=== PATIENT | female | born 1930 | race African-American/Black ===

== ENCOUNTER 2017-12-11 10:19 | Inpatient (IN) | payer MEDICARE, MEDICAID ==
[2017-12-11] MEDS ORDERED: CEFTRIAXONE 1 GM/D5W RTU 50 ML IV ONE (10:51)
[2017-12-11] MEDS ORDERED: KETOROLAC TROMETHAMINE INJ/PF 30 MG/1 ML SDV IV ONE (10:54)
[2017-12-11] MEDS ORDERED: CEFTRIAXONE SODIUM 1,000 MG in NORMAL SALINE 100 ML IV ONE (11:30)
--- NOTE | 2017-12-11 11:45 | ER Document Report ---
ED General - General Chief Complaint: Fever Stated Complaint: FEVER Time Seen by Provider: 12/11/17 10:24 Mode of Arrival: Medic Information source: Emergency Med Personnel Cannot obtain history due to: Dementia, Altered mental status Notes: 87-year-old female presents from care facility where she was noted to have a fever of 105.1, care facility provided tylenol 650 rectal, ems noted temp 102, gave 325 tylenol rectal. pt noted to be demented at baseline agitated, but today has been calmer. TRAVEL OUTSIDE OF THE [place] IN LAST 30 DAYS: No - HPI Onset: Just prior to arrival Onset/Duration: Sudden Quality of pain: No pain Severity: Severe Pain Level: Denies Associated symptoms: Fever, Other Exacerbated by: Denies Relieved by: Denies Similar symptoms previously: No Recently seen / treated by doctor: No - Related Data Allergies/Adverse Reactions: No Known Allergies Allergy (Verified 10/02/16 00:13) Past Medical History - Social History Smoking Status: Never Smoker Cigarette use (# per day): No Chew tobacco use (# tins/day): No Smoking Education Provided: No Family History: Reviewed & Not Pertinent - Past Medical History Cardiac Medical History: Reports: Hx Hypertension Musculoskeltal Medical History: Reports Hx Arthritis Psychiatric Medical History: Reports: Hx Dementia - Immunizations Hx Diphtheria, Pertussis, Tetanus Vaccination: Yes Review of Systems - Review of Systems Notes: PHYSICAL EXAMINATION: GENERAL: Extremely ill-appearing female HEAD: Atraumatic, normocephalic. EYES: Pupils equal round and reactive to light, extraocular movements intact, conjunctiva are normal. ENT: Dry mucous membranes white matter in her mouth NECK: Normal range of motion, supple without lymphadenopathy LUNGS: Coarse breath sounds tachypneic HEART: Tachycardic ABDOMEN: Soft, nontender, nondistended abdomen. No guarding, no rebound. No masses appreciated. Female : deferred Musculoskeletal: Normal range of motion, no pitting or edema. No cyanosis. NEUROLOGICAL: Not oriented to person or place no speech patient is moving upper extremities SKIN: Extremities are cold but patient is noted to be febrile 105 -: Yes ROS unobtainable due to patient's medical condition Physical Exam - Vital signs Vitals: Resp Pulse Ox 27 H 94 12/11/17 10:28 12/11/17 10:28 Course - Re-evaluation Re-evalutation: Strongly ill-appearing female 12/11/17 11:43 I had a long discussion with tyra, she notes patient is a dnr, i explained extensively that rob is extremely ill and tyron probably succumb to the current infection, she notes she understands, I explained i will try to treat her at the best of my abilities but expect comfort care for her, she states she understands, does not want surgery or any extensive measures and that she is comfortable with comfort care. lab is drawing blood work, pt given tylenol 1000mg temp was between 105-102, i gave toradol iv to help with fever and agitation. 12/11/17 11:[address] Stephens he will admit ot medical floor for comfort, agrees about extremly poor prognosis 12/11/17 19:59 12/11/17 19:59 Patient's lab work look extremely poor, elevated lactic acid severe white count noted patient herself looks in extremis, I have very low prognosis - Vital Signs Vital signs: Temp Pulse Resp BP Pulse Ox 99.8 F 27 H 144/100 H 84 L 12/11/17 15:00 12/11/17 15:00 12/11/17 15:11 12/11/17 15:00 - Laboratory Result Diagrams: 12/11/17 11:44 12/11/17 11:44 Laboratory results interpreted by me: 12/11/17 12/11/17 12/11/17 11:44 11:44 11:44 WBC 26.6 H RDW 14.8 H Seg Neuts % (Manual) 96 H Band Neutrophils % 1 L Lymphocytes % (Manual) 1 L Monocytes % (Manual) 2 L Abs Neuts (Manual) 25.8 H Abs Lymphs (Manual) 0.3 L PT 16.5 H VBG pH Sodium 157.2 H Potassium 3.4 L Chloride 115 H Anion Gap 20 H BUN 50 H Creatinine 2.05 H Est GFR ( Amer) 28 L Est GFR (Non-Af Amer) 23 L Glucose 227 H Lactic Acid Total Bilirubin 2.2 H Direct Bilirubin 0.7 H Urine Protein Urine Glucose (UA) Urine Blood Urine Urobilinogen 12/11/17 12/11/17 12/11/17 11:44 11:44 12:25 WBC RDW Seg Neuts % (Manual) Band Neutrophils % Lymphocytes % (Manual) Monocytes % (Manual) Abs Neuts (Manual) Abs Lymphs (Manual) PT VBG pH 7.45 H Sodium Potassium Chloride Anion Gap BUN Creatinine Est GFR ( Amer) Est GFR (Non-Af Amer) Glucose Lactic Acid 3.8 H Total Bilirubin Direct Bilirubin Urine Protein >=500 H Urine Glucose (UA) 50 H Urine Blood MODERATE H Urine Urobilinogen 4.0 H - Diagnostic Test Radiology reviewed: Image reviewed, Reports reviewed Critical Care Note - Critical Care Note Total time excluding time spent on procedures (mins): 55 Comments: 55 minutes of critical care time spent in direct contact evaluating and reevaluating the patient, treating symptoms, reviewing labs and studies and speaking with family and consultants excluding any procedures Discharge - Discharge Clinical Impression: Encephalopathy, Hypoxemia Dementia Qualifiers: Dementia type: unspecified type Dementia behavioral disturbance: with behavioral disturbance Qualified Code(s): F03.91 - Unspecified dementia with behavioral disturbance Sepsis Qualifiers: Sepsis type: sepsis due to unspecified organism Qualified Code(s): A41.9 - Sepsis, unspecified organism Fever Qualifiers: Fever type: unspecified Qualified Code(s): R50.9 - Fever, unspecified Condition: Critical Disposition: ADMITTED INPATIENT Admitting Provider: [facility] Unit Admitted: Medical Floor
[2017-12-11] MEDS ORDERED: DIPHENHYDRAMINE HCL 50 MG/ML VIAL IV ONE (11:51)
[2017-12-11 11:58] LABS: VENOUS BLOOD BASE EXCESS 0.9 mmol/L; VENOUS BLOOD HCO3 24.4 mmol/L (20-32); VENOUS BLOOD PCO2 35.7 mmHg (35-63); VENOUS BLOOD PH 7.45 (7.30-7.42)
[2017-12-11 12:01] LABS: HEMATOCRIT 43.6 % (36.0-47.0); HEMOGLOBIN 14.3 g/dL (12.0-15.5); MEAN CORPUSCULAR HEMOGLOBIN 30.5 pg (27.0-33.4); MEAN CORPUSCULAR HGB CONC 32.8 g/dL (32.0-36.0); MEAN CORPUSCULAR VOLUME 93 fl (80-97); PLATELET COUNT 216 10^3/uL (150-450); RED CELL DISTRIBUTION WIDTH 14.8 % (11.5-14.0); WHITE BLOOD COUNT 26.6 10^3/uL (4.0-10.5)
[2017-12-11 12:06] LABS: INTERNATIONAL RATION (INR) 1.25; PROTHROMBIN TIME 16.5 SEC (11.4-15.4)
[2017-12-11 12:15] LABS: ALANINE AMINOTRANSFERASE 26 U/L (9-52); ALBUMIN 3.9 g/dL (3.5-5.0); ALKALINE PHOSPHATASE 93 U/L (38-126); ASPARTATE AMINO TRANSFERASE 35 U/L (14-36); BILIRUBIN,DIRECT 0.7 mg/dL (0.0-0.4); BILIRUBIN,TOTAL 2.2 mg/dL (0.2-1.3); BLOOD UREA NITROGEN 50 mg/dL (7-20); CALCIUM 9.9 mg/dL (8.4-10.2); CARBON DIOXIDE 22 mmol/L (22-30); CHLORIDE 115 mmol/L (98-107); GLUCOSE 227 mg/dL (75-110); POTASSIUM 3.4 mmol/L (3.6-5.0); TOTAL PROTEIN 6.8 g/dL (6.3-8.2)
[2017-12-11 12:23] LABS: SODIUM 157.2 mmol/L (137-145)
[2017-12-11 12:25] LABS: ABSOLUTE LYMPHOCYTES# (MANUAL) 0.3 10^3/uL (0.5-4.7); ABSOLUTE MONOCYTES # (MANUAL) 0.5 10^3/uL (0.1-1.4); ABSOLUTE NEUTROPHILS# (MANUAL) 25.8 10^3/uL (1.7-8.2); ANISOCYTOSIS SLIGHT; BAND NEUTROPHILS % (MANUAL) 1 % (3-5); BASOPHILS % (MANUAL) 0 % (0-2); EOSINOPHILS % (MANUAL) 0 % (0-6); LYMPHOCYTES % (MANUAL) 1 % (13-45); MONOCYTES % (MANUAL) 2 % (3-13); OVALOCYTES SLIGHT; POIKILOCYTOSIS SLIGHT; SEGMENTED NEUTROPHILS % (MAN) 96 % (42-78); TOTAL CELLS COUNTED 100; TOXIC GRANULATION 1+; TOXIC VACUOLATION PRESENT
[2017-12-11 12:26] LABS: PLATELET COMMENT ADEQUATE
[2017-12-11 12:27] LABS: ANION GAP 20 (5-19)
--- NOTE | 2017-12-11 12:42 | RADIOLOGY REPORT (SQ) ---
EXAM DESCRIPTION: CHEST SINGLE VIEW COMPLETED DATE/TIME: 12/11/2017 12:33 pm REASON FOR STUDY: fever 105 COMPARISON: Chest films 06/12/2011, 11/20/2012, 04/23/2013, 10/01/2016 EXAM PARAMETERS: NUMBER OF VIEWS: One view. TECHNIQUE: Single frontal radiographic view of the chest acquired. RADIATION DOSE: NA LIMITATIONS: None. FINDINGS: LUNGS AND PLEURA: No opacities, masses or pneumothorax. No pleural effusion. MEDIASTINUM AND HILAR STRUCTURES: No masses. Contour normal. HEART AND VASCULAR STRUCTURES: Heart normal in size. Normal vasculature. BONES: No acute findings. HARDWARE: None in the chest. OTHER: No other significant finding. IMPRESSION: NO ACUTE RADIOGRAPHIC FINDING IN THE CHEST. TECHNICAL DOCUMENTATION: JOB ID: [id number] [employer]- All Rights Reserved Reading location - IP/workstation name: [email or web address]
[2017-12-11 12:45] LABS: AMORPHOUS SEDIMENT,URINE TRACE /HPF; APPEARANCE,URINE CLOUDY; BILIRUBIN,URINE NEGATIVE (NEGATIVE); COLOR,URINE AMBER; GLUCOSE, URINE 50 mg/dL (NEGATIVE); KETONES,URINE NEGATIVE (NEGATIVE); LEUKOCYTE ESTERASE,URINE NEGATIVE (NEGATIVE); NITRITE,URINE NEGATIVE (NEGATIVE); PROTEIN,URINE >=500 mg/dL (NEGATIVE); URINE SPECIFIC GRAVITY 1.027
--- NOTE | 2017-12-11 13:10 | EKG REPORT ---
SEVERITY:- ABNORMAL ECG - SINUS TACHYCARDIA PROBABLE LEFT VENTRICULAR HYPERTROPHY BORDERLINE ST ELEVATION, ANTEROLATERAL LEADS : Confirmed by: José Miguel Garcia MD 11-Dec-2017 13:10:09
[2017-12-11] MEDS ORDERED: NORMAL SALINE 1000 ML 1,000 ML IV ONE ×2 (13:46→13:47)
[2017-12-11] MEDS: HYDROMORPHONE HCL INJ/PF 2 MG/ML AMPULE IV PRN (22:54)
[2017-12-11] MEDS: AMPICILLIN SODIUM/SULBACTAM NA 3 GM in NORMAL SALINE 100 ML IV SCH (22:55)
[2017-12-12] MEDS: AMPICILLIN SODIUM/SULBACTAM NA 3 GM in NORMAL SALINE 100 ML IV SCH ×4 (05:22→20:56)
--- NOTE | 2017-12-12 06:08 | PDOC H&P ---
History of Present Illness Admission Date/PCP: 12/11/17 13:38 ROGER CASH MD History of Present Illness: MAYA LIZARRAGA is a 87 year old femle With dementia, resident of the senior care at [place], she was transferred from the senior care to the emergency room for evaluation of fever with temperature 105. She was evaluated in the emergency room, she was found to be septic, there is lactic acidosis, severe leukocytosis, acute kidney injury. No history could be obtained from patient, she has excruciating very tender left periauricular area, looks suspicious for an abscess Past Medical History Cardiac Medical History: Reports: Hypertension Musculoskeltal Medical History: Reports: Arthritis Psychiatric Medical History: Reports: Dementia Denies: Depression Social History Smoking Status: Never Smoker Frequency of Alcohol Use: None Hx Recreational Drug Use: No Drugs: None Hx Prescription Drug Abuse: No Family History Family History: Reviewed & Not Pertinent Parental Family History Reviewed: Yes Children Family History Reviewed: Yes Sibling(s) Family History Reviewed.: Yes Medication/Allergy Home Medications: Acetaminophen [Tylenol 325 mg Tablet] 650 mg PO Q8 12/11/17 Alprazolam [Xanax 0.5 mg Tablet] 0.5 mg PO BID 12/11/17 Aspirin [Aspirin 81 mg Chewable Tablet] 81 mg PO DAILY 12/11/17 Levetiracetam [Keppra 500 mg Tablet] 500 mg PO Q12 12/11/17 Lisinopril [Prinivil 5 mg Tablet] 5 mg PO DAILY 12/11/17 Mirtazapine [Remeron 15 mg Tablet] 7.5 mg PO QHS 12/11/17 Multivitamin/Iron/Folic Acid [Centrum Adults Tablet] 1 each PO DAILY 12/11/17 Sertraline HCl [Zoloft 50 mg Tablet] 50 mg PO DAILY 12/11/17 Allergies/Adverse Reactions: No Known Allergies Allergy (Verified 10/02/16 00:13) Review of Systems ROS unobtainable: Other - Dementia Physical Exam Vital Signs: Temp Pulse Resp BP Pulse Ox 99.8 F 27 H 144/100 H 84 L 12/11/17 15:00 12/11/17 15:00 12/11/17 15:11 12/11/17 15:00 Intake & Output 12/10/17 12/11/17 12/12/17 06:59 06:59 06:59 Intake Total 0 Output Total 200 Balance -200 Weight 45.4 kg General appearance: PRESENT: thin Eye exam: PRESENT: PERRLA Ear exam: PRESENT: other - There is swelling, redness and tenderness of the left periauricular area Mouth exam: PRESENT: other - Purulent secretion in the oral cavity Neck exam: PRESENT: tenderness Respiratory exam: PRESENT: clear to auscultation sharron Cardiovascular exam: PRESENT: +S1, +S2 Neurological exam: PRESENT: alert Results Laboratory Results: 12/11/17 16:07 Lactic Acid 1.9 Impressions: Chest X-Ray 12/11/17 10:51 IMPRESSION: NO ACUTE RADIOGRAPHIC FINDING IN THE CHEST. Assessment & Plan - Diagnosis (1) Sepsis Qualifiers: Sepsis type: sepsis due to unspecified organism Qualified Code(s): A41.9 - Sepsis, unspecified organism Is this a current diagnosis for this admission?: Yes Plan: She has sepsis, potential source abscess/cellulitis of the left. Periauricular area. Family wants patient to be DNR status, no heroic measures. I had a long discussion with family about prognosis and plan of care (2) Dementia Qualifiers: Dementia type: Alzheimer's disease Is this a current diagnosis for this admission?: Yes
[2017-12-12] MEDS: NORMAL SALINE 1000 ML 1,000 ML IV PRN ×2 (06:27→09:50)
[2017-12-12 07:06] LABS: HEMATOCRIT 37.4 % (36.0-47.0); HEMOGLOBIN 12.3 g/dL (12.0-15.5); MEAN CORPUSCULAR HEMOGLOBIN 30.4 pg (27.0-33.4); MEAN CORPUSCULAR HGB CONC 32.8 g/dL (32.0-36.0); MEAN CORPUSCULAR VOLUME 93 fl (80-97); PLATELET COUNT 178 10^3/uL (150-450); RED BLOOD COUNT 4.03 10^6/uL (3.72-5.28); WHITE BLOOD COUNT 22.1 10^3/uL (4.0-10.5)
[2017-12-12 07:16] LABS: ALANINE AMINOTRANSFERASE 32 U/L (9-52); ALBUMIN 3.1 g/dL (3.5-5.0); ALKALINE PHOSPHATASE 87 U/L (38-126); ANION GAP 18 (5-19); ASPARTATE AMINO TRANSFERASE 52 U/L (14-36); BILIRUBIN,DIRECT 0.8 mg/dL (0.0-0.4); BILIRUBIN,TOTAL 1.2 mg/dL (0.2-1.3); CARBON DIOXIDE 23 mmol/L (22-30); CHLORIDE 119 mmol/L (98-107); GLUCOSE 111 mg/dL (75-110); POTASSIUM 3.9 mmol/L (3.6-5.0); SODIUM 159.6 mmol/L (137-145); TOTAL PROTEIN 5.7 g/dL (6.3-8.2)
[2017-12-12 07:25] LABS: ABSOLUTE LYMPHOCYTES# (MANUAL) 1.8 10^3/uL (0.5-4.7); ABSOLUTE NEUTROPHILS# (MANUAL) 20.3 10^3/uL (1.7-8.2); BAND NEUTROPHILS % (MANUAL) 9 % (3-5); BASOPHILS % (MANUAL) 0 % (0-2); EOSINOPHILS % (MANUAL) 0 % (0-6); LYMPHOCYTES % (MANUAL) 8 % (13-45); MONOCYTES % (MANUAL) 0 % (3-13); SEGMENTED NEUTROPHILS % (MAN) 83 % (42-78); TOTAL CELLS COUNTED 100
[2017-12-12 07:26] LABS: TOXIC GRANULATION SLIGHT
[2017-12-12 07:27] LABS: OVALOCYTES SLIGHT; PLATELET COMMENT ADEQUATE; POIKILOCYTOSIS SLIGHT; TARGET CELLS SLIGHT
[2017-12-12 07:31] LABS: BLOOD UREA NITROGEN 75 mg/dL (7-20)
[2017-12-12] MEDS ORDERED: DEXTROSE 5%-WATER 1000 ML 1,000 ML IV PRN (12:53)
--- NOTE | 2017-12-12 13:40 | RADIOLOGY REPORT (SQ) ---
EXAM DESCRIPTION: CT FACIAL AREA WITHOUT COMPLETED DATE/TIME: 12/12/2017 11:33 am REASON FOR STUDY: suspect abscess in the left periauricular area COMPARISON: None. TECHNIQUE: Noncontrasted images through the facial bones and orbits windowed for bone and soft tissu e. Additional coronal and sagittal reconstructed images reviewed. All images stored on PACS. All CT scanners at this facility use dose modulation, iterative reconstruction, and/or weight based d osing when appropriate to reduce radiation dose to as low as reasonably achievable (ALARA). [facility]: Dose Right [facility]: CareDose [facility]: Dose Right [facility]: Teradose 4D [facility]: Last 2 Left RADIATION DOSE: CT Rad equipment meets quality standard of care and radiation dose reduction techniq ues were employed. CTDIvol: 30.4 mGy. DLP: 627 mGy-cm. mGy. LIMITATIONS: None. FINDINGS: FACIAL BONES: No fracture or bone lesion. ORBITS: Intact. No fracture. Symmetric intact globes and retroorbital soft tissues. PARANASAL SINUSES: Clear. No significant mucosal thickening, mass or fluid. No nasal polyps. Maxill ro sinus outlets are patent. SOFT TISSUES: There is diffuse left-sided pre and postauricular soft tissue swelling, skin thickening along the ear pannus and external auditory canal. Soft tissue stranding in the subcutaneous fat ksenia ng the preauricular region, with an enlarged 1.2 x 0.8 cm preauricular lymph node. There is diffuse decreased attenuation of and enlargement/swelling throughout the superficial and shelly p lobe of the left parotid gland. Findings are worrisome for parotid infection/inflammation. There are no calculi along the left parotid gland or expected location of Lyon's duct. The left mastoid air cells and middle ear cavity are clear. INFERIOR BRAIN: Limited view. No acute findings. OTHER: No other significant finding. IMPRESSION: Diffuse swelling of the left superficial and deep lobe of the parotid gland, enlargement of a preauricular lymph node, and diffuse soft tissue swelling of the left ear pinna and external au ditory canal soft tissues. Findings likely represent parotiditis. Malignant external otitis is also possible. Dr. Collado notified TECHNICAL DOCUMENTATION: JOB ID: [id number] Quality ID # [id number]: Final reports with documentation of one or more dose reduction techniques (e.g., Au tomated exposure control, adjustment of the mA and/or kV according to patient size, use of iterative reconstruction technique) 2010 [employer]- All Rights Reserved Reading location - IP/workstation name: [email or web address]
--- NOTE | 2017-12-12 20:39 | PDOC PROGRESS REPORT ---
Subjective Progress Note for:: 12/12/17 Subjective:: Patient seen by the bedside initially it was felt that she be a comfort care but that was discontinued on she is now a DNR, CT scan of the face was done, it suggests malignant otitis externa this was discussed with family Reason For Visit: ENCEPHALOPATHY DEMENTIA SEPSIS FEVER Physical Exam Vital Signs: Temp Pulse Resp BP Pulse Ox 99.8 F 27 H 144/100 H 84 L 12/11/17 15:00 12/11/17 15:00 12/11/17 15:11 12/11/17 15:00 Intake & Output 12/11/17 12/12/17 12/13/17 06:59 06:59 06:59 Intake Total 5 1500 Output Total 400 225 Balance -395 1275 Weight 45.4 kg General appearance: PRESENT: no acute distress Eye exam: PRESENT: PERRLA Respiratory exam: PRESENT: clear to auscultation sharron Cardiovascular exam: PRESENT: +S1, +S2 GI/Abdominal exam: PRESENT: soft Neurological exam: PRESENT: alert Results Laboratory Results: 12/12/17 06:29 12/12/17 06:29 12/12/17 12/12/17 06:29 06:29 WBC 22.1 H RBC 4.03 Hgb 12.3 Hct 37.4 MCV 93 MCH 30.4 MCHC 32.8 RDW 15.0 H Plt Count 178 Seg Neutrophils % Not Reportable Lymphocytes % Not Reportable Monocytes % Not Reportable Eosinophils % Not Reportable Basophils % Not Reportable Absolute Neutrophils Not Reportable Absolute Lymphocytes Not Reportable Absolute Monocytes Not Reportable Absolute Eosinophils Not Reportable Absolute Basophils Not Reportable Sodium 159.6 H Potassium 3.9 Chloride 119 H Carbon Dioxide 23 Anion Gap 18 BUN 75 H D Creatinine 3.52 H Est GFR ( Amer) 15 L Est GFR (Non-Af Amer) 12 L Glucose 111 H Calcium 9.0 Total Bilirubin 1.2 AST 52 H ALT 32 Alkaline Phosphatase 87 Total Protein 5.7 L Albumin 3.1 L Impressions: Chest X-Ray 12/11/17 10:51 IMPRESSION: NO ACUTE RADIOGRAPHIC FINDING IN THE CHEST. Facial Bones CT 12/12/17 00:00 IMPRESSION: Diffuse swelling of the left superficial and deep lobe of the parotid gland, enlargement of a preauricular lymph node, and diffuse soft tissue swelling of the left ear pinna and external auditory canal soft tissues. Findings likely represent parotiditis. Malignant external otitis is also possible. Dr. Collado notified Assessment & Plan - Diagnosis (1) Sepsis Qualifiers: Sepsis type: sepsis due to unspecified organism Qualified Code(s): A41.9 - Sepsis, unspecified organism Is this a current diagnosis for this admission?: Yes (2) Dementia Qualifiers: Dementia type: Alzheimer's disease Is this a current diagnosis for this admission?: Yes (3) Malignant otitis externa of left ear Qualifiers: Chronicity: acute Qualified Code(s): H60.22 - Malignant otitis externa, left ear Is this a current diagnosis for this admission?: Yes Plan: Continue IV antibiotic (4) Acute kidney injury Is this a current diagnosis for this admission?: Yes Plan: Continue IV fluid
[2017-12-12] MEDS: DEXTROSE 5%-WATER 1000 ML 1,000 ML IV PRN (20:56)
[2017-12-13] MEDS: AMPICILLIN SODIUM/SULBACTAM NA 3 GM in NORMAL SALINE 100 ML IV SCH ×4 (03:32→21:14)
[2017-12-13] MEDS: HYDROMORPHONE HCL INJ/PF 2 MG/ML AMPULE IV PRN ×2 (05:30→12:54)
[2017-12-13 08:07] LABS: HEMATOCRIT 32.8 % (36.0-47.0); HEMOGLOBIN 10.6 g/dL (12.0-15.5); MEAN CORPUSCULAR HEMOGLOBIN 30.3 pg (27.0-33.4); MEAN CORPUSCULAR HGB CONC 32.5 g/dL (32.0-36.0); MEAN CORPUSCULAR VOLUME 93 fl (80-97); PLATELET COUNT 170 10^3/uL (150-450); RED BLOOD COUNT 3.51 10^6/uL (3.72-5.28); RED CELL DISTRIBUTION WIDTH 15.7 % (11.5-14.0); WHITE BLOOD COUNT 18.4 10^3/uL (4.0-10.5)
[2017-12-13 08:20] LABS: ALANINE AMINOTRANSFERASE 63 U/L (9-52); ALBUMIN 2.5 g/dL (3.5-5.0); ALKALINE PHOSPHATASE 67 U/L (38-126); ANION GAP 16 (5-19); ASPARTATE AMINO TRANSFERASE 106 U/L (14-36); BILIRUBIN,DIRECT 0.8 mg/dL (0.0-0.4); BLOOD UREA NITROGEN 74 mg/dL (7-20); CARBON DIOXIDE 25 mmol/L (22-30); CHLORIDE 118 mmol/L (98-107); GLUCOSE 190 mg/dL (75-110); POTASSIUM 3.8 mmol/L (3.6-5.0); SODIUM 158.8 mmol/L (137-145); TOTAL PROTEIN 5.3 g/dL (6.3-8.2)
[2017-12-13 08:46] LABS: ABSOLUTE LYMPHOCYTES# (MANUAL) 1.3 10^3/uL (0.5-4.7); ABSOLUTE MONOCYTES # (MANUAL) 0.4 10^3/uL (0.1-1.4); ABSOLUTE NEUTROPHILS# (MANUAL) 16.7 10^3/uL (1.7-8.2); BASOPHILS % (MANUAL) 0 % (0-2); EOSINOPHILS % (MANUAL) 0 % (0-6); LYMPHOCYTES % (MANUAL) 7 % (13-45); MONOCYTES % (MANUAL) 2 % (3-13); SEGMENTED NEUTROPHILS % (MAN) 75 % (42-78); TOTAL CELLS COUNTED 100
[2017-12-13 08:59] LABS: PLATELET COMMENT ADEQUATE
[2017-12-13 09:01] LABS: ANISOCYTOSIS SLIGHT; BURR CELLS SLIGHT; HYPOCHROMASIA 1+; POIKILOCYTOSIS SLIGHT
--- NOTE | 2017-12-13 14:24 | PDOC PROGRESS REPORT ---
Subjective Progress Note for:: 12/13/17 Subjective:: She was seen by the bedside, she was admitted for the management of sepsis, acute kidney injury, malignant otitis externa Reason For Visit: ENCEPHALOPATHY DEMENTIA SEPSIS FEVER Physical Exam Vital Signs: Temp Pulse Resp BP Pulse Ox 97.2 F 61 14 124/41 L 96 12/13/17 11:31 12/13/17 11:31 12/13/17 11:31 12/13/17 11:31 12/13/17 11:31 Intake & Output 12/12/17 12/13/17 12/14/17 06:59 06:59 06:59 Intake Total 5 2940 Output Total 400 325 Balance -395 2615 Weight 45.4 kg 49.4 kg General appearance: PRESENT: no acute distress Eye exam: PRESENT: PERRLA Respiratory exam: PRESENT: clear to auscultation sharron Cardiovascular exam: PRESENT: +S1, +S2 GI/Abdominal exam: PRESENT: soft Neurological exam: PRESENT: alert Results Laboratory Results: 12/13/17 07:48 12/13/17 07:48 12/13/17 12/13/17 07:48 07:48 WBC 18.4 H RBC 3.51 L Hgb 10.6 L Hct 32.8 L MCV 93 MCH 30.3 MCHC 32.5 RDW 15.7 H Plt Count 170 Seg Neutrophils % Not Reportable Lymphocytes % Not Reportable Monocytes % Not Reportable Eosinophils % Not Reportable Basophils % Not Reportable Absolute Neutrophils Not Reportable Absolute Lymphocytes Not Reportable Absolute Monocytes Not Reportable Absolute Eosinophils Not Reportable Absolute Basophils Not Reportable Sodium 158.8 H Potassium 3.8 Chloride 118 H Carbon Dioxide 25 Anion Gap 16 BUN 74 H Creatinine 1.66 H Est GFR ( Amer) 36 L Est GFR (Non-Af Amer) 29 L Glucose 190 H Calcium 8.0 L Total Bilirubin 1.0 AST 106 H ALT 63 H Alkaline Phosphatase 67 Total Protein 5.3 L Albumin 2.5 L Impressions: Chest X-Ray 12/11/17 10:51 IMPRESSION: NO ACUTE RADIOGRAPHIC FINDING IN THE CHEST. Facial Bones CT 12/12/17 00:00 IMPRESSION: Diffuse swelling of the left superficial and deep lobe of the parotid gland, enlargement of a preauricular lymph node, and diffuse soft tissue swelling of the left ear pinna and external auditory canal soft tissues. Findings likely represent parotiditis. Malignant external otitis is also possible. Dr. Collado notified Assessment & Plan - Diagnosis (1) Sepsis Qualifiers: Sepsis type: sepsis due to unspecified organism Qualified Code(s): A41.9 - Sepsis, unspecified organism Is this a current diagnosis for this admission?: Yes (2) Dementia Qualifiers: Dementia type: Alzheimer's disease Is this a current diagnosis for this admission?: Yes (3) Malignant otitis externa of left ear Qualifiers: Chronicity: acute Qualified Code(s): H60.22 - Malignant otitis externa, left ear Is this a current diagnosis for this admission?: Yes (4) Acute kidney injury Is this a current diagnosis for this admission?: Yes Plan: Continue IV fluid (5) Hypernatremia Is this a current diagnosis for this admission?: Yes Plan: Continue 5% dextrose
[2017-12-14] MEDS: HYDROMORPHONE HCL INJ/PF 2 MG/ML AMPULE IV PRN ×4 (00:18→20:51)
[2017-12-14] MEDS: AMPICILLIN SODIUM/SULBACTAM NA 3 GM in NORMAL SALINE 100 ML IV SCH ×3 (02:51→20:51)
[2017-12-14] MEDS: DEXTROSE 5%-WATER 1000 ML 1,000 ML IV PRN ×2 (03:53→20:12)
[2017-12-14 09:45] LABS: BAND NEUTROPHILS % (MANUAL) 16 % (3-5)
[2017-12-14] MEDS ORDERED: VANCOMYCIN HCL 0 MG in DEXTROSE 5%-WATER 250 ML IV NR (18:15)
[2017-12-14] MEDS ORDERED: HUM INSULIN NPH/REG INSULIN HM 100 UNIT/1 ML 3 ML SUBCUT ONE (20:00)
--- NOTE | 2017-12-14 21:38 | PDOC PROGRESS REPORT ---
Subjective Progress Note for:: 12/14/17 Subjective:: Patient confused ,sleepy, blood culture positive for MRSA septicemia Reason For Visit: ENCEPHALOPATHY DEMENTIA SEPSIS FEVER Physical Exam Vital Signs: Temp Pulse Resp BP Pulse Ox 98.4 F 74 16 112/59 L 91 L 12/14/17 16:00 12/14/17 16:00 12/14/17 16:00 12/14/17 16:00 12/14/17 16:00 Intake & Output 12/13/17 12/14/17 12/15/17 06:59 06:59 06:59 Intake Total 2940 1252 Output Total 325 960 300 Balance 2615 292 -300 Weight 49.4 kg Eye exam: PRESENT: PERRLA Respiratory exam: PRESENT: clear to auscultation sharron Cardiovascular exam: PRESENT: +S1, +S2 GI/Abdominal exam: PRESENT: soft Neurological exam: PRESENT: altered Results Laboratory Results: 12/13/17 07:48 12/13/17 07:48 Impressions: Chest X-Ray 12/11/17 10:51 IMPRESSION: NO ACUTE RADIOGRAPHIC FINDING IN THE CHEST. Facial Bones CT 12/12/17 00:00 IMPRESSION: Diffuse swelling of the left superficial and deep lobe of the parotid gland, enlargement of a preauricular lymph node, and diffuse soft tissue swelling of the left ear pinna and external auditory canal soft tissues. Findings likely represent parotiditis. Malignant external otitis is also possible. Dr. Collado notified Assessment & Plan - Diagnosis (1) Sepsis Qualifiers: Sepsis type: sepsis due to unspecified organism Qualified Code(s): A41.9 - Sepsis, unspecified organism Is this a current diagnosis for this admission?: Yes (2) Dementia Qualifiers: Dementia type: Alzheimer's disease Is this a current diagnosis for this admission?: Yes (3) Malignant otitis externa of left ear Qualifiers: Chronicity: acute Qualified Code(s): H60.22 - Malignant otitis externa, left ear Is this a current diagnosis for this admission?: Yes (4) Acute kidney injury Is this a current diagnosis for this admission?: Yes (5) Hypernatremia Is this a current diagnosis for this admission?: Yes (6) MRSA (methicillin resistant Staphylococcus aureus) septicemia Is this a current diagnosis for this admission?: Yes Plan: MRSA septicemia, start vancomycin
[2017-12-14 21:55] LABS: ABSOLUTE MONOCYTES (AUTO) 0.8 10^3/uL (0.1-1.4); ABSOLUTE NEUT (AUTO) 8.3 10^3/uL (1.7-8.2); BASOPHILS % (AUTO) 0.1 % (0-2); EOSINOPHILS % (AUTO) 0.5 % (0-6); HEMATOCRIT 29.1 % (36.0-47.0); HEMOGLOBIN 9.5 g/dL (12.0-15.5); LYMPHOCYTES % (AUTO) 9.8 % (13-45); MEAN CORPUSCULAR HEMOGLOBIN 30.5 pg (27.0-33.4); MEAN CORPUSCULAR HGB CONC 32.6 g/dL (32.0-36.0); MEAN CORPUSCULAR VOLUME 94 fl (80-97); MONOCYTES % (AUTO) 8.2 % (3-13); PLATELET COUNT 155 10^3/uL (150-450); RED BLOOD COUNT 3.11 10^6/uL (3.72-5.28); RED CELL DISTRIBUTION WIDTH 14.9 % (11.5-14.0); SEGMENTED NEUTROPHILS % (AUTO) 81.4 % (42-78); TOTAL CELLS COUNTED % (AUTO) 100 %; WHITE BLOOD COUNT 10.2 10^3/uL (4.0-10.5)
[2017-12-14] MEDS ORDERED: VANCOMYCIN HCL 500 MG in DEXTROSE 5%-WATER 100 ML IV SCH (22:00)
[2017-12-14] MEDS: VANCOMYCIN HCL 500 MG in NORMAL SALINE 100 ML IV SCH (22:12)
[2017-12-14 22:22] LABS: ALANINE AMINOTRANSFERASE 53 U/L (9-52); ALBUMIN 2.8 g/dL (3.5-5.0); ALKALINE PHOSPHATASE 70 U/L (38-126); ANION GAP 10 (5-19); ASPARTATE AMINO TRANSFERASE 59 U/L (14-36); BILIRUBIN,DIRECT 0.2 mg/dL (0.0-0.4); BILIRUBIN,TOTAL 0.8 mg/dL (0.2-1.3); BLOOD UREA NITROGEN 35 mg/dL (7-20); CALCIUM 8.4 mg/dL (8.4-10.2); CARBON DIOXIDE 28 mmol/L (22-30); CHLORIDE 121 mmol/L (98-107); GLUCOSE 129 mg/dL (75-110); POTASSIUM 3.5 mmol/L (3.6-5.0); SODIUM 159.2 mmol/L (137-145); TOTAL PROTEIN 5.7 g/dL (6.3-8.2)
[2017-12-15] MEDS: HYDROMORPHONE HCL INJ/PF 2 MG/ML AMPULE IV PRN ×5 (00:05→20:40)
[2017-12-15 07:57] LABS: HEMATOCRIT 27.8 % (36.0-47.0); HEMOGLOBIN 9.3 g/dL (12.0-15.5); MEAN CORPUSCULAR HEMOGLOBIN 31.5 pg (27.0-33.4); MEAN CORPUSCULAR HGB CONC 33.4 g/dL (32.0-36.0); MEAN CORPUSCULAR VOLUME 94 fl (80-97); PLATELET COUNT 148 10^3/uL (150-450); RED BLOOD COUNT 2.96 10^6/uL (3.72-5.28); RED CELL DISTRIBUTION WIDTH 15.1 % (11.5-14.0); WHITE BLOOD COUNT 9.1 10^3/uL (4.0-10.5)
[2017-12-15 08:13] LABS: ALANINE AMINOTRANSFERASE 52 U/L (9-52); ALBUMIN 2.3 g/dL (3.5-5.0); ALKALINE PHOSPHATASE 55 U/L (38-126); ASPARTATE AMINO TRANSFERASE 43 U/L (14-36); BILIRUBIN,DIRECT 0.5 mg/dL (0.0-0.4); BILIRUBIN,TOTAL 0.9 mg/dL (0.2-1.3); BLOOD UREA NITROGEN 27 mg/dL (7-20); CALCIUM 7.7 mg/dL (8.4-10.2); GLUCOSE 140 mg/dL (75-110); POTASSIUM 3.7 mmol/L (3.6-5.0); TOTAL PROTEIN 4.9 g/dL (6.3-8.2)
[2017-12-15 08:26] LABS: ANION GAP 7 (5-19); CARBON DIOXIDE 28 mmol/L (22-30); CHLORIDE 120 mmol/L (98-107); SODIUM 154.5 mmol/L (137-145)
[2017-12-15] MEDS: AMPICILLIN SODIUM/SULBACTAM NA 3 GM in NORMAL SALINE 100 ML IV SCH ×2 (08:27→20:40)
[2017-12-15] MEDS: DEXTROSE 5%-WATER 1000 ML 1,000 ML IV PRN ×2 (08:28→17:40)
[2017-12-15 09:22] LABS: ABSOLUTE LYMPHOCYTES# (MANUAL) 1.2 10^3/uL (0.5-4.7); ABSOLUTE MONOCYTES # (MANUAL) 0.5 10^3/uL (0.1-1.4); ABSOLUTE NEUTROPHILS# (MANUAL) 7.4 10^3/uL (1.7-8.2); BASOPHILS % (MANUAL) 0 % (0-2); EOSINOPHILS % (MANUAL) 0 % (0-6); LYMPHOCYTES % (MANUAL) 13 % (13-45); MONOCYTES % (MANUAL) 6 % (3-13); TOTAL CELLS COUNTED 100
[2017-12-15 09:23] LABS: TOXIC VACUOLATION PRESENT
[2017-12-15 09:29] LABS: TOXIC GRANULATION 1+
[2017-12-15 09:36] LABS: ANISOCYTOSIS SLIGHT; HYPOCHROMASIA 1+
[2017-12-15 09:37] LABS: SCHISTOCYTES SLIGHT
[2017-12-15 09:42] LABS: PATH REVIEW PATHOLOGIST REVIEWED
[2017-12-15 09:48] LABS: PLATELET LARGE PRESENT
[2017-12-15 09:52] LABS: OVALOCYTES SLIGHT; SEGMENTED NEUTROPHILS % (MAN) 81 % (42-78)
[2017-12-15 09:53] LABS: PLATELET COMMENT DECREASED
--- NOTE | 2017-12-15 19:36 | PDOC PROGRESS REPORT ---
Subjective Progress Note for:: 12/15/17 Subjective:: She was seen by the bedside, there is swelling of the neck, CT scan of soft tissue the neck was done with contrast, it showed diffuse enlargement of the left parotid gland both deep and superficial with extremely heterogeneous enhancement pattern and extension along the soft tissue of the neck into the submandibular retention into the base of the tongue and floor of the mouth. A discrete drainable abscess collection is not identified. Similar diffuse enlargement also noted of the submandibular glands bilaterally Reason For Visit: ENCEPHALOPATHY DEMENTIA SEPSIS FEVER Physical Exam Vital Signs: Temp Pulse Resp BP Pulse Ox 99.2 F 65 18 119/47 L 99 12/15/17 16:06 12/15/17 16:06 12/15/17 16:06 12/15/17 16:06 12/15/17 16:06 Intake & Output 12/14/17 12/15/17 12/16/17 06:59 06:59 06:59 Intake Total 1252 1500 1440 Output Total 960 1200 450 Balance 292 300 990 General appearance: PRESENT: mild distress Eye exam: PRESENT: PERRLA Neck exam: PRESENT: lymphadenopathy, other - Swelling of the neck, redness, tenderness Respiratory exam: PRESENT: decreased breath sounds Cardiovascular exam: PRESENT: +S1, +S2 GI/Abdominal exam: PRESENT: soft Neurological exam: PRESENT: alert Results Laboratory Results: 12/15/17 07:40 12/15/17 07:40 12/14/17 12/14/17 12/15/17 21:44 21:44 07:40 WBC 10.2 9.1 RBC 3.11 L 2.96 L Hgb 9.5 L 9.3 L Hct 29.1 L 27.8 L MCV 94 94 MCH 30.5 31.5 MCHC 32.6 33.4 RDW 14.9 H 15.1 H Plt Count 155 148 L Seg Neutrophils % 81.4 H Not Reportable Lymphocytes % 9.8 L Not Reportable Monocytes % 8.2 Not Reportable Eosinophils % 0.5 Not Reportable Basophils % 0.1 Not Reportable Absolute Neutrophils 8.3 H Not Reportable Absolute Lymphocytes 1.0 Not Reportable Absolute Monocytes 0.8 Not Reportable Absolute Eosinophils 0.0 Not Reportable Absolute Basophils 0.0 Not Reportable Sodium 159.2 H Potassium 3.5 L Chloride 121 H Carbon Dioxide 28 Anion Gap 10 BUN 35 H Creatinine 0.93 Est GFR ( Amer) > 60 Est GFR (Non-Af Amer) 57 L Glucose 129 H Calcium 8.4 Total Bilirubin 0.8 AST 59 H ALT 53 H Alkaline Phosphatase 70 Total Protein 5.7 L Albumin 2.8 L 12/15/17 07:40 WBC RBC Hgb Hct MCV MCH MCHC RDW Plt Count Seg Neutrophils % Lymphocytes % Monocytes % Eosinophils % Basophils % Absolute Neutrophils Absolute Lymphocytes Absolute Monocytes Absolute Eosinophils Absolute Basophils Sodium 154.5 H Potassium 3.7 Chloride 120 H Carbon Dioxide 28 Anion Gap 7 BUN 27 H Creatinine 0.82 Est GFR ( Amer) > 60 Est GFR (Non-Af Amer) > 60 Glucose 140 H Calcium 7.7 L Total Bilirubin 0.9 AST 43 H ALT 52 Alkaline Phosphatase 55 Total Protein 4.9 L Albumin 2.3 L Impressions: Chest X-Ray 12/11/17 10:51 IMPRESSION: NO ACUTE RADIOGRAPHIC FINDING IN THE CHEST. Facial Bones CT 12/12/17 00:00 IMPRESSION: Diffuse swelling of the left superficial and deep lobe of the parotid gland, enlargement of a preauricular lymph node, and diffuse soft tissue swelling of the left ear pinna and external auditory canal soft tissues. Findings likely represent parotiditis. Malignant external otitis is also possible. Dr. Collado notified Assessment & Plan - Diagnosis (1) Sepsis Qualifiers: Sepsis type: sepsis due to unspecified organism Qualified Code(s): A41.9 - Sepsis, unspecified organism Is this a current diagnosis for this admission?: Yes (2) Dementia Qualifiers: Dementia type: Alzheimer's disease Is this a current diagnosis for this admission?: Yes (3) Malignant otitis externa of left ear Qualifiers: Chronicity: acute Qualified Code(s): H60.22 - Malignant otitis externa, left ear Is this a current diagnosis for this admission?: Yes (4) Acute kidney injury Is this a current diagnosis for this admission?: Yes (5) Hypernatremia Is this a current diagnosis for this admission?: Yes (6) MRSA (methicillin resistant Staphylococcus aureus) septicemia Is this a current diagnosis for this admission?: Yes - Plan Summary Plan Summary: Consultation obtained from surgery, this finding discussed with patient's family
--- NOTE | 2017-12-15 22:50 | RADIOLOGY REPORT (SQ) ---
EXAM DESCRIPTION: CT SOFT TISSUE NECK WITH COMPLETED DATE/TIME: 12/15/2017 10:18 pm REASON FOR STUDY: suspect abscess collection COMPARISON: None. TECHNIQUE: Post IV contrasted scanning from skull base through lung apices with review of bone, soft tissue and lung windows. Reconstructed coronal and sagittal MPR images reviewed. All images stored on PACS. All CT scanners at this facility use dose modulation, iterative reconstruction, and/or weight based d osing when appropriate to reduce radiation dose to as low as reasonably achievable (ALARA). [facility]: Dose Right [facility]: CareDose [facility]: Dose Right [facility]: Teradose 4D [facility]: [employer] CONTRAST TYPE AND DOSE: contrast/concentration: Isovue 370.00 mg/ml; Total Contrast Delivered: 75.0 ml; Total Saline Delivered: 55.0 ml RENAL FUNCTION: None required. The patient is less than 50 years old. RADIATION DOSE: CT Rad equipment meets quality standard of care and radiation dose reduction techniq ues were employed. CTDIvol: 6.3 mGy. DLP: 207 mGy-cm. . LIMITATIONS: None. FINDINGS: SKULL BASE: Intact. MAJOR SALIVARY GLANDS: There is diffuse enlargement of the left parotid gland both deep and superfici al within extremely heterogeneous enhancement pattern and extension along the soft tissues of the nec k into the submandibular retention and into the base of the tongue and floor of the mouth. A discret e drainable abscess collection is not identified. Similar diffuse enlargement also noted of the subm andibular glands bilaterally. The right parotid gland is intact. LYMPHADENOPATHY: No adenopathy. MUCOSAL MASSES OR ASYMMETRY: No mucosal masses or asymmetry. LARYNX/CORDS: Asymmetry along the left parapharyngeal space extending peripherally to the base of the tongue and floor of the mouth as described. VASCULAR STRUCTURES: The major vessels are patent. LUNG APICES: Clear. BONES: Intact. THYROID: Normal size. No masses. PARANASAL SINUSES: Clear. OTHER: No other significant finding. IMPRESSION: Diffuse enlargement inflammatory changes of the left parotid gland extending deep and iniguez perficial along the neck and along the para pharynx into the floor of the mouth and tongue as well a s the submandibular space bilaterally. Large phlegmon. A discrete drainable abscess is not identifi ed. TECHNICAL DOCUMENTATION: JOB ID: [id number] Quality ID # [id number]: Final reports with documentation of one or more dose reduction techniques (e.g., Au tomated exposure control, adjustment of the mA and/or kV according to patient size, use of iterative reconstruction technique) 2010 [employer]- All Rights Reserved Reading location - IP/workstation name: [email or web address]
[2017-12-16] MEDS: HYDROMORPHONE HCL INJ/PF 2 MG/ML AMPULE IV PRN ×4 (00:05→20:53)
--- NOTE | 2017-12-16 01:31 | PDOC CONSULTATION ---
History of Present Illness Admission Date/PCP: 12/11/17 13:38 ROGER CASH MD Patient complains of: noted some reddened swelling of left neck. Pt is demented History of Present Illness: PMD called me to see this patient with him because of the possiblity of abscess on her left neck. Pt also has MRSA on blood C/S. There is a small amount of seropurulent drainage on the midpart of left neck lesion. Patient is demented and is DNR. Past Medical History Cardiac Medical History: Reports: Hypertension Musculoskeltal Medical History: Reports: Arthritis Psychiatric Medical History: Reports: Dementia Denies: Depression Social History Smoking Status: Never Smoker Frequency of Alcohol Use: None Hx Recreational Drug Use: No Drugs: None Hx Prescription Drug Abuse: No Family History Family History: Reviewed & Not Pertinent Parental Family History Reviewed: No Children Family History Reviewed: No Sibling(s) Family History Reviewed.: No Medication/Allergy Home Medications: Acetaminophen [Tylenol 325 mg Tablet] 650 mg PO Q8 12/11/17 Alprazolam [Xanax 0.5 mg Tablet] 0.5 mg PO BID 12/11/17 Aspirin [Aspirin 81 mg Chewable Tablet] 81 mg PO DAILY 12/11/17 Levetiracetam [Keppra 500 mg Tablet] 500 mg PO Q12 12/11/17 Lisinopril [Prinivil 5 mg Tablet] 5 mg PO DAILY 12/11/17 Mirtazapine [Remeron 15 mg Tablet] 7.5 mg PO QHS 12/11/17 Multivitamin/Iron/Folic Acid [Centrum Adults Tablet] 1 each PO DAILY 12/11/17 Sertraline HCl [Zoloft 50 mg Tablet] 50 mg PO DAILY 12/11/17 Allergies/Adverse Reactions: No Known Allergies Allergy (Verified 10/02/16 00:13) Review of Systems Review of Systems: unable to obtain because patient is demented. Physical Exam Vital Signs: Temp Pulse Resp BP Pulse Ox 99.2 F 65 18 119/47 L 99 12/15/17 16:06 12/15/17 16:06 12/15/17 16:06 12/15/17 16:06 12/15/17 16:06 Intake & Output 02/26/18 02/27/18 02/28/18 06:59 06:59 06:59 Intake Total 1252 1500 1440 Output Total 960 1200 450 Balance 292 300 990 Exam: There is a large firm slightly reddened mass on the left neck with a small amount of sero-purulent discharge on the mid part of mass. Results Laboratory Results: 12/15/17 07:40 12/15/17 07:40 12/15/17 12/15/17 07:40 07:40 WBC 9.1 RBC 2.96 L Hgb 9.3 L Hct 27.8 L MCV 94 MCH 31.5 MCHC 33.4 RDW 15.1 H Plt Count 148 L Seg Neutrophils % Not Reportable Lymphocytes % Not Reportable Monocytes % Not Reportable Eosinophils % Not Reportable Basophils % Not Reportable Absolute Neutrophils Not Reportable Absolute Lymphocytes Not Reportable Absolute Monocytes Not Reportable Absolute Eosinophils Not Reportable Absolute Basophils Not Reportable Sodium 154.5 H Potassium 3.7 Chloride 120 H Carbon Dioxide 28 Anion Gap 7 BUN 27 H Creatinine 0.82 Est GFR ( Amer) > 60 Est GFR (Non-Af Amer) > 60 Glucose 140 H Calcium 7.7 L Total Bilirubin 0.9 AST 43 H ALT 52 Alkaline Phosphatase 55 Total Protein 4.9 L Albumin 2.3 L Impressions: Chest X-Ray 12/11/17 10:51 IMPRESSION: NO ACUTE RADIOGRAPHIC FINDING IN THE CHEST. Facial Bones CT 12/12/17 00:00 IMPRESSION: Diffuse swelling of the left superficial and deep lobe of the parotid gland, enlargement of a preauricular lymph node, and diffuse soft tissue swelling of the left ear pinna and external auditory canal soft tissues. Findings likely represent parotiditis. Malignant external otitis is also possible. Dr. Cash notified Soft Tissue Neck CT 12/15/17 00:00 IMPRESSION: Diffuse enlargement inflammatory changes of the left parotid gland extending deep and superficial along the neck and along the para pharynx into the floor of the mouth and tongue as well as the submandibular space bilaterally. Large phlegmon. A discrete drainable abscess is not identified. Assessment & Plan - Diagnosis (1) Tumor of parotid gland Is this a current diagnosis for this admission?: Yes - Time Time Spent: 30 to 50 Minutes - Plan Summary Plan Summary: There is no drainable abscess on the left neck. This is a complex tumor of the parotid gland. Can culture the discharge to confirm it as the source of MRSA systemic infection
[2017-12-16] MEDS: AMPICILLIN SODIUM/SULBACTAM NA 3 GM in NORMAL SALINE 100 ML IV SCH ×2 (09:29→20:54)
[2017-12-16] MEDS: VANCOMYCIN HCL 500 MG in NORMAL SALINE 100 ML IV SCH (10:43)
[2017-12-16] MEDS ORDERED: VANCOMYCIN HCL 500 MG in DEXTROSE 5%-WATER 100 ML IV ONE ×2 (12:00→14:00)
[2017-12-16] MEDS ORDERED: VANCOMYCIN HCL 500 MG in NORMAL SALINE 100 ML IV ONE ×2 (14:00→15:00)
--- NOTE | 2017-12-16 21:31 | PDOC PROGRESS REPORT ---
Subjective Progress Note for:: 12/16/17 Subjective:: She was seen by the bedside, there is swelling of the neck, CT scan of soft tissue the neck was done with contrast, it showed diffuse enlargement of the left parotid gland both deep and superficial with extremely heterogeneous enhancement pattern and extension along the soft tissue of the neck into the submandibular retention into the base of the tongue and floor of the mouth. A discrete drainable abscess collection is not identified. Similar diffuse enlargement also noted of the submandibular glands bilaterally Reason For Visit: ENCEPHALOPATHY DEMENTIA SEPSIS FEVER Physical Exam Vital Signs: Temp Pulse Resp BP Pulse Ox 97.9 F 72 20 113/64 97 12/16/17 16:00 12/16/17 16:00 12/16/17 16:00 12/16/17 16:00 12/16/17 16:00 Intake & Output 12/15/17 12/16/17 12/17/17 06:59 06:59 06:59 Intake Total 1500 2880 1861 Output Total 1200 950 275 Balance 300 1930 1586 General appearance: PRESENT: mild distress Eye exam: PRESENT: PERRLA Respiratory exam: PRESENT: clear to auscultation sharron Cardiovascular exam: PRESENT: +S1, +S2 GI/Abdominal exam: PRESENT: soft Neurological exam: PRESENT: alert Results Laboratory Results: 12/15/17 07:40 12/15/17 07:40 Impressions: Chest X-Ray 12/11/17 10:51 IMPRESSION: NO ACUTE RADIOGRAPHIC FINDING IN THE CHEST. Facial Bones CT 12/12/17 00:00 IMPRESSION: Diffuse swelling of the left superficial and deep lobe of the parotid gland, enlargement of a preauricular lymph node, and diffuse soft tissue swelling of the left ear pinna and external auditory canal soft tissues. Findings likely represent parotiditis. Malignant external otitis is also possible. Dr. Collado notified Soft Tissue Neck CT 12/15/17 00:00 IMPRESSION: Diffuse enlargement inflammatory changes of the left parotid gland extending deep and superficial along the neck and along the para pharynx into the floor of the mouth and tongue as well as the submandibular space bilaterally. Large phlegmon. A discrete drainable abscess is not identified. Assessment & Plan - Diagnosis (1) Sepsis Qualifiers: Sepsis type: sepsis due to unspecified organism Qualified Code(s): A41.9 - Sepsis, unspecified organism Is this a current diagnosis for this admission?: Yes (2) Dementia Qualifiers: Dementia type: Alzheimer's disease Is this a current diagnosis for this admission?: Yes (3) Malignant otitis externa of left ear Qualifiers: Chronicity: acute Qualified Code(s): H60.22 - Malignant otitis externa, left ear Is this a current diagnosis for this admission?: Yes (4) Acute kidney injury Is this a current diagnosis for this admission?: Yes (5) Hypernatremia Is this a current diagnosis for this admission?: Yes (6) MRSA (methicillin resistant Staphylococcus aureus) septicemia Is this a current diagnosis for this admission?: Yes
[2017-12-17] MEDS: LORAZEPAM INJ 2 MG/1 ML VIAL IV PRN ×2 (00:11→20:05)
[2017-12-17] MEDS: DEXTROSE 5%-WATER 1000 ML 1,000 ML IV PRN ×3 (00:14→20:07)
[2017-12-17] MEDS: AMPICILLIN SODIUM/SULBACTAM NA 3 GM in NORMAL SALINE 100 ML IV SCH ×2 (11:57→20:07)
[2017-12-17] MEDS: VANCOMYCIN HCL 1,000 MG in DEXTROSE 5%-WATER 250 ML IV SCH (14:36)
--- NOTE | 2017-12-17 22:17 | PDOC PROGRESS REPORT ---
Subjective Progress Note for:: 12/17/17 Subjective:: She was seen by the bedside the inflammatory swelling in the neck, mandibular region seems to be improving, she is presently on intravenous vancomycin and Unasyn, the blood culture grew MRSA but she is also continue on Unasyn because vancomycin, covers only gram positive bacteria, the organs involve in this infection is salivary glands, the neck which suggests involvement of anaerobes and gram-negative which is not covered with vancomycin/particularly malignant otitis externa is because usually by Pseudomonas Reason For Visit: ENCEPHALOPATHY DEMENTIA SEPSIS FEVER Physical Exam Vital Signs: Temp Pulse Resp BP Pulse Ox 100.3 F 32 L 19 121/89 H 81 L 12/17/17 15:11 12/17/17 15:11 12/17/17 15:11 12/17/17 15:11 12/17/17 15:11 Intake & Output 12/16/17 12/17/17 12/18/17 06:59 06:59 06:59 Intake Total 2880 1861 0 Output Total 950 375 650 Balance 1930 1486 -650 General appearance: PRESENT: mild distress Eye exam: PRESENT: PERRLA Neck exam: PRESENT: lymphadenopathy, tenderness, other - Swelling of the submandibular region Respiratory exam: PRESENT: clear to auscultation sharron Cardiovascular exam: PRESENT: +S1, +S2 GI/Abdominal exam: PRESENT: soft Neurological exam: PRESENT: alert Results Laboratory Results: 12/15/17 07:40 12/15/17 07:40 Impressions: Chest X-Ray 12/11/17 10:51 IMPRESSION: NO ACUTE RADIOGRAPHIC FINDING IN THE CHEST. Facial Bones CT 12/12/17 00:00 IMPRESSION: Diffuse swelling of the left superficial and deep lobe of the parotid gland, enlargement of a preauricular lymph node, and diffuse soft tissue swelling of the left ear pinna and external auditory canal soft tissues. Findings likely represent parotiditis. Malignant external otitis is also possible. Dr. Collado notified Soft Tissue Neck CT 12/15/17 00:00 IMPRESSION: Diffuse enlargement inflammatory changes of the left parotid gland extending deep and superficial along the neck and along the para pharynx into the floor of the mouth and tongue as well as the submandibular space bilaterally. Large phlegmon. A discrete drainable abscess is not identified. Assessment & Plan - Diagnosis (1) Sepsis Qualifiers: Sepsis type: sepsis due to unspecified organism Qualified Code(s): A41.9 - Sepsis, unspecified organism Is this a current diagnosis for this admission?: Yes (2) Dementia Qualifiers: Dementia type: Alzheimer's disease Is this a current diagnosis for this admission?: Yes (3) Malignant otitis externa of left ear Qualifiers: Chronicity: acute Qualified Code(s): H60.22 - Malignant otitis externa, left ear Is this a current diagnosis for this admission?: Yes (4) Acute kidney injury Is this a current diagnosis for this admission?: Yes (5) Hypernatremia Is this a current diagnosis for this admission?: Yes (6) MRSA (methicillin resistant Staphylococcus aureus) septicemia Is this a current diagnosis for this admission?: Yes - Plan Summary Plan Summary: She will continue IV vancomycin, Unasyn
[2017-12-18] MEDS: DEXTROSE 5%-WATER 1000 ML 1,000 ML IV PRN ×2 (05:18→17:28)
[2017-12-18] MEDS: LORAZEPAM INJ 2 MG/1 ML VIAL IV PRN ×2 (08:18→20:26)
[2017-12-18] MEDS: AMPICILLIN SODIUM/SULBACTAM NA 3 GM in NORMAL SALINE 100 ML IV SCH ×2 (08:18→20:26)
[2017-12-18] MEDS: VANCOMYCIN HCL 1,000 MG in DEXTROSE 5%-WATER 250 ML IV SCH (10:39)
--- NOTE | 2017-12-18 21:23 | PDOC PROGRESS REPORT ---
Subjective Progress Note for:: 12/18/17 Subjective:: She was seen by the bedside the inflammatory swelling in the neck, mandibular region seems to be improving, she is presently on intravenous vancomycin and Unasyn, the blood culture grew MRSA but she is also continue on Unasyn because vancomycin, covers only gram positive bacteria, the organs involve in this infection is salivary glands, the neck which suggests involvement of anaerobes and gram-negative which is not covered with vancomycin/particularly malignant otitis externa is because usually by Pseudomonas,Patient is somewhat agitated Reason For Visit: ENCEPHALOPATHY DEMENTIA SEPSIS FEVER Physical Exam Vital Signs: Temp Pulse Resp BP Pulse Ox 97.8 F 52 L 20 144/51 H 95 12/18/17 20:11 12/18/17 20:11 12/18/17 20:11 12/18/17 20:11 12/18/17 20:11 Intake & Output 12/17/17 12/18/17 12/19/17 06:59 06:59 06:59 Intake Total 1861 1440 1680 Output Total 375 2950 1500 Balance 1486 -1510 180 General appearance: PRESENT: mild distress Eye exam: PRESENT: PERRLA Neck exam: PRESENT: lymphadenopathy, tenderness, tracheal deviation Respiratory exam: PRESENT: clear to auscultation sharron Cardiovascular exam: PRESENT: +S1, +S2 GI/Abdominal exam: PRESENT: soft Neurological exam: PRESENT: alert, CN II-XII grossly intact Results Laboratory Results: 12/15/17 07:40 12/15/17 07:40 Impressions: Chest X-Ray 12/11/17 10:51 IMPRESSION: NO ACUTE RADIOGRAPHIC FINDING IN THE CHEST. Facial Bones CT 12/12/17 00:00 IMPRESSION: Diffuse swelling of the left superficial and deep lobe of the parotid gland, enlargement of a preauricular lymph node, and diffuse soft tissue swelling of the left ear pinna and external auditory canal soft tissues. Findings likely represent parotiditis. Malignant external otitis is also possible. Dr. Collado notified Soft Tissue Neck CT 12/15/17 00:00 IMPRESSION: Diffuse enlargement inflammatory changes of the left parotid gland extending deep and superficial along the neck and along the para pharynx into the floor of the mouth and tongue as well as the submandibular space bilaterally. Large phlegmon. A discrete drainable abscess is not identified. Assessment & Plan - Diagnosis (1) Sepsis Qualifiers: Sepsis type: sepsis due to unspecified organism Qualified Code(s): A41.9 - Sepsis, unspecified organism Is this a current diagnosis for this admission?: Yes (2) Dementia Qualifiers: Dementia type: Alzheimer's disease Is this a current diagnosis for this admission?: Yes (3) Malignant otitis externa of left ear Qualifiers: Chronicity: acute Qualified Code(s): H60.22 - Malignant otitis externa, left ear Is this a current diagnosis for this admission?: Yes (4) Acute kidney injury Is this a current diagnosis for this admission?: Yes (5) Hypernatremia Is this a current diagnosis for this admission?: Yes (6) MRSA (methicillin resistant Staphylococcus aureus) septicemia Is this a current diagnosis for this admission?: Yes - Plan Summary Plan Summary: Continue IV antibiotic
[2017-12-18 22:36] LABS: ABSOLUTE EOSINOPHILS # (AUTO) 0.1 10^3/uL (0.0-0.6); ABSOLUTE LYMPHOCYTES (AUTO) 1.4 10^3/uL (0.5-4.7); ABSOLUTE MONOCYTES (AUTO) 0.5 10^3/uL (0.1-1.4); ABSOLUTE NEUT (AUTO) 10.2 10^3/uL (1.7-8.2); BASOPHILS % (AUTO) 0.2 % (0-2); EOSINOPHILS % (AUTO) 0.7 % (0-6); HEMATOCRIT 32.2 % (36.0-47.0); HEMOGLOBIN 10.7 g/dL (12.0-15.5); LYMPHOCYTES % (AUTO) 11.7 % (13-45); MEAN CORPUSCULAR HEMOGLOBIN 30.3 pg (27.0-33.4); MEAN CORPUSCULAR HGB CONC 33.2 g/dL (32.0-36.0); MEAN CORPUSCULAR VOLUME 91 fl (80-97); MONOCYTES % (AUTO) 4.1 % (3-13); PLATELET COUNT 341 10^3/uL (150-450); RED BLOOD COUNT 3.53 10^6/uL (3.72-5.28); RED CELL DISTRIBUTION WIDTH 13.7 % (11.5-14.0); SEGMENTED NEUTROPHILS % (AUTO) 83.3 % (42-78); TOTAL CELLS COUNTED % (AUTO) 100 %; WHITE BLOOD COUNT 12.2 10^3/uL (4.0-10.5)
[2017-12-18 22:54] LABS: ALANINE AMINOTRANSFERASE 59 U/L (9-52); ALBUMIN 2.8 g/dL (3.5-5.0); ALKALINE PHOSPHATASE 76 U/L (38-126); ANION GAP 9 (5-19); ASPARTATE AMINO TRANSFERASE 54 U/L (14-36); BILIRUBIN,DIRECT 0.2 mg/dL (0.0-0.4); BLOOD UREA NITROGEN 5 mg/dL (7-20); CALCIUM 7.7 mg/dL (8.4-10.2); CARBON DIOXIDE 34 mmol/L (22-30); CHLORIDE 96 mmol/L (98-107); GLUCOSE 112 mg/dL (75-110); SODIUM 138.8 mmol/L (137-145); TOTAL PROTEIN 5.5 g/dL (6.3-8.2)
[2017-12-18 22:59] LABS: POTASSIUM 2.5 mmol/L (3.6-5.0)
[2017-12-19] MEDS: POTASSIUM CHLORIDE 20 MEQ/50 ML RTU IV SCH ×2 (00:16→05:04)
[2017-12-19] MEDS: LORAZEPAM INJ 2 MG/1 ML VIAL IV PRN ×4 (02:45→21:42)
[2017-12-19 07:48] LABS: ABSOLUTE EOSINOPHILS # (AUTO) 0.1 10^3/uL (0.0-0.6); ABSOLUTE LYMPHOCYTES (AUTO) 1.2 10^3/uL (0.5-4.7); ABSOLUTE MONOCYTES (AUTO) 0.5 10^3/uL (0.1-1.4); ABSOLUTE NEUT (AUTO) 9.2 10^3/uL (1.7-8.2); BASOPHILS % (AUTO) 0.1 % (0-2); EOSINOPHILS % (AUTO) 0.6 % (0-6); HEMATOCRIT 31.3 % (36.0-47.0); HEMOGLOBIN 10.4 g/dL (12.0-15.5); LYMPHOCYTES % (AUTO) 10.6 % (13-45); MEAN CORPUSCULAR HEMOGLOBIN 30.7 pg (27.0-33.4); MEAN CORPUSCULAR HGB CONC 33.4 g/dL (32.0-36.0); MEAN CORPUSCULAR VOLUME 92 fl (80-97); MONOCYTES % (AUTO) 4.8 % (3-13); PLATELET COUNT 361 10^3/uL (150-450); RED BLOOD COUNT 3.39 10^6/uL (3.72-5.28); RED CELL DISTRIBUTION WIDTH 13.7 % (11.5-14.0); SEGMENTED NEUTROPHILS % (AUTO) 83.9 % (42-78); TOTAL CELLS COUNTED % (AUTO) 100 %
[2017-12-19 07:58] LABS: ALANINE AMINOTRANSFERASE 59 U/L (9-52); ALBUMIN 2.6 g/dL (3.5-5.0); ALKALINE PHOSPHATASE 76 U/L (38-126); ANION GAP 6 (5-19); ASPARTATE AMINO TRANSFERASE 59 U/L (14-36); BILIRUBIN,DIRECT 0.4 mg/dL (0.0-0.4); BLOOD UREA NITROGEN 5 mg/dL (7-20); CALCIUM 7.5 mg/dL (8.4-10.2); CARBON DIOXIDE 33 mmol/L (22-30); CHLORIDE 98 mmol/L (98-107); GLUCOSE 112 mg/dL (75-110); SODIUM 136.6 mmol/L (137-145); TOTAL PROTEIN 5.6 g/dL (6.3-8.2)
[2017-12-19 08:00] LABS: POTASSIUM 2.7 mmol/L (3.6-5.0)
[2017-12-19] MEDS: AMPICILLIN SODIUM/SULBACTAM NA 3 GM in NORMAL SALINE 100 ML IV SCH ×2 (09:09→21:31)
[2017-12-19 10:58] LABS: VANCOMYCIN,TROUGH 10.5 ug/mL (5.0-20.0)
[2017-12-19] MEDS: VANCOMYCIN HCL 1,000 MG in DEXTROSE 5%-WATER 250 ML IV SCH (11:02)
--- NOTE | 2017-12-19 11:15 | PDOC PROGRESS REPORT ---
Subjective Subjective:: This is a 87-year-old females admitting from the pneumonia and otitis externa and the respiratory distress and multiple other comorbidity with the patient supposed to be a comfort care but family still continues to current medications with patient's prognosis is very poor Dr. Collado When I saw the patient's patients pretty much currently on the Venturi mask and still with some mild respiratory distress Patient's potassium is 2.7 patient is unable to take anything by mouth According to the nursing staff and according to the pcp patients currently DNR No family member available Reason For Visit: ENCEPHALOPATHY DEMENTIA SEPSIS FEVER Physical Exam Vital Signs: Temp Pulse Resp BP Pulse Ox 98.3 F 75 20 77/42 L 96 12/19/17 07:25 12/19/17 07:25 12/19/17 07:25 12/19/17 07:25 12/19/17 09:16 Intake & Output 12/18/17 12/19/17 12/20/17 06:59 06:59 06:59 Intake Total 1440 1680 Output Total 2950 1900 Balance -1510 -220 General appearance: PRESENT: mild distress Eye exam: PRESENT: PERRLA Respiratory exam: PRESENT: decreased breath sounds Cardiovascular exam: PRESENT: +S1, +S2 GI/Abdominal exam: PRESENT: normal bowel sounds, soft Extremities exam: ABSENT: pedal edema Neurological exam: PRESENT: altered Results Laboratory Results: 12/19/17 06:25 12/19/17 10:09 12/18/17 12/18/17 12/19/17 22:30 22:30 06:25 WBC 12.2 H 11.0 H RBC 3.53 L 3.39 L Hgb 10.7 L 10.4 L Hct 32.2 L 31.3 L MCV 91 92 MCH 30.3 30.7 MCHC 33.2 33.4 RDW 13.7 13.7 Plt Count 341 361 Seg Neutrophils % 83.3 H 83.9 H Lymphocytes % 11.7 L 10.6 L Monocytes % 4.1 4.8 Eosinophils % 0.7 0.6 Basophils % 0.2 0.1 Absolute Neutrophils 10.2 H 9.2 H Absolute Lymphocytes 1.4 1.2 Absolute Monocytes 0.5 0.5 Absolute Eosinophils 0.1 0.1 Absolute Basophils 0.0 0.0 Sodium 138.8 Potassium 2.5 L* Chloride 96 L Carbon Dioxide 34 H Anion Gap 9 BUN 5 L Creatinine 0.62 Est GFR ( Amer) > 60 Est GFR (Non-Af Amer) > 60 Glucose 112 H Calcium 7.7 L Total Bilirubin 1.0 AST 54 H ALT 59 H Alkaline Phosphatase 76 Total Protein 5.5 L Albumin 2.8 L 12/19/17 12/19/17 06:25 10:09 WBC RBC Hgb Hct MCV MCH MCHC RDW Plt Count Seg Neutrophils % Lymphocytes % Monocytes % Eosinophils % Basophils % Absolute Neutrophils Absolute Lymphocytes Absolute Monocytes Absolute Eosinophils Absolute Basophils Sodium 136.6 L Potassium 2.7 L* Chloride 98 Carbon Dioxide 33 H Anion Gap 6 BUN 5 L Creatinine 0.65 0.58 Est GFR ( Amer) > 60 > 60 Est GFR (Non-Af Amer) > 60 > 60 Glucose 112 H Calcium 7.5 L Total Bilirubin 1.0 AST 59 H ALT 59 H Alkaline Phosphatase 76 Total Protein 5.6 L Albumin 2.6 L Impressions: Chest X-Ray 12/11/17 10:51 IMPRESSION: NO ACUTE RADIOGRAPHIC FINDING IN THE CHEST. Facial Bones CT 12/12/17 00:00 IMPRESSION: Diffuse swelling of the left superficial and deep lobe of the parotid gland, enlargement of a preauricular lymph node, and diffuse soft tissue swelling of the left ear pinna and external auditory canal soft tissues. Findings likely represent parotiditis. Malignant external otitis is also possible. Dr. Collado notified Soft Tissue Neck CT 12/15/17 00:00 IMPRESSION: Diffuse enlargement inflammatory changes of the left parotid gland extending deep and superficial along the neck and along the para pharynx into the floor of the mouth and tongue as well as the submandibular space bilaterally. Large phlegmon. A discrete drainable abscess is not identified. Assessment & Plan - Diagnosis (1) Acute kidney injury Is this a current diagnosis for this admission?: Yes Plan: Currently patient is running low potassiums will transfuse with IV (2) Dementia Qualifiers: Dementia type: unspecified type Dementia behavioral disturbance: with behavioral disturbance Qualified Code(s): F03.91 - Unspecified dementia with behavioral disturbance Is this a current diagnosis for this admission?: Yes (3) MRSA (methicillin resistant Staphylococcus aureus) septicemia Is this a current diagnosis for this admission?: Yes Plan: Continues IV antibiotic (4) Malignant otitis externa of left ear Qualifiers: Chronicity: acute Qualified Code(s): H60.22 - Malignant otitis externa, left ear Is this a current diagnosis for this admission?: Yes Plan: Continues IV antibiotic (5) Sepsis Qualifiers: Sepsis type: sepsis due to unspecified organism Qualified Code(s): A41.9 - Sepsis, unspecified organism Is this a current diagnosis for this admission?: Yes (6) Dysphagia, oral phase Is this a current diagnosis for this admission?: Yes - Time Time Spent with patient: 15-24 minutes Medications reviewed and adjusted accordingly: Yes Anticipated discharge: Other Within: Other - Inpatient Certification Medical Necessity: Need Close Monitoring Due to Risk of Patient Decompensation, Need for IV Antibiotics Post Hospital Care: D/C [facility] Documentation - Plan Summary Plan Summary: Overall patient's prognosis is very poor patient is currently on IV antibiotic continues to replace the potassium and continues to monitor
[2017-12-19] MEDS: POTASSI CL 20 MEQ/50 ML RIDER 20 MEQ/50 ML RTUPB IV SCH ×2 (11:54→15:08)
[2017-12-20] MEDS: LORAZEPAM INJ 2 MG/1 ML VIAL IV PRN ×4 (05:51→22:11)
[2017-12-20 07:49] LABS: ABSOLUTE EOSINOPHILS # (AUTO) 0.1 10^3/uL (0.0-0.6); ABSOLUTE LYMPHOCYTES (AUTO) 1.3 10^3/uL (0.5-4.7); ABSOLUTE MONOCYTES (AUTO) 0.5 10^3/uL (0.1-1.4); BASOPHILS % (AUTO) 0.2 % (0-2); EOSINOPHILS % (AUTO) 0.5 % (0-6); HEMATOCRIT 25.4 % (36.0-47.0); HEMOGLOBIN 8.6 g/dL (12.0-15.5); LYMPHOCYTES % (AUTO) 12.7 % (13-45); MEAN CORPUSCULAR HEMOGLOBIN 30.7 pg (27.0-33.4); MEAN CORPUSCULAR HGB CONC 33.7 g/dL (32.0-36.0); MEAN CORPUSCULAR VOLUME 91 fl (80-97); MONOCYTES % (AUTO) 5.3 % (3-13); PLATELET COUNT 340 10^3/uL (150-450); RED BLOOD COUNT 2.79 10^6/uL (3.72-5.28); RED CELL DISTRIBUTION WIDTH 13.5 % (11.5-14.0); SEGMENTED NEUTROPHILS % (AUTO) 81.3 % (42-78); TOTAL CELLS COUNTED % (AUTO) 100 %; WHITE BLOOD COUNT 9.9 10^3/uL (4.0-10.5)
[2017-12-20 08:16] LABS: ANION GAP 8 (5-19); BLOOD UREA NITROGEN 5 mg/dL (7-20); CALCIUM 7.3 mg/dL (8.4-10.2); CARBON DIOXIDE 28 mmol/L (22-30); CHLORIDE 104 mmol/L (98-107); GLUCOSE 83 mg/dL (75-110); POTASSIUM 3.1 mmol/L (3.6-5.0); SODIUM 140.2 mmol/L (137-145)
[2017-12-20] MEDS ORDERED: VANCOMYCIN HCL 1,500 MG in DEXTROSE 5%-WATER 250 ML IV SCH (10:00)
[2017-12-20] MEDS: AMPICILLIN SODIUM/SULBACTAM NA 3 GM in NORMAL SALINE 100 ML IV SCH (10:10)
--- NOTE | 2017-12-20 10:27 | PDOC PROGRESS REPORT ---
Subjective Progress Note for:: 12/20/17 Subjective:: Patient is currently on comfort care as per request by family member Otherwise no other events happens Reason For Visit: ENCEPHALOPATHY DEMENTIA SEPSIS FEVER Physical Exam Vital Signs: Temp Pulse Resp BP Pulse Ox 98.4 F 97 16 80/55 L 99 12/19/17 21:26 12/19/17 21:26 12/19/17 21:26 12/19/17 21:26 12/19/17 21:26 Intake & Output 12/19/17 12/20/17 12/21/17 06:59 06:59 06:59 Intake Total 1680 2947 Output Total 1900 1100 Balance -220 1847 General appearance: PRESENT: mild distress Mouth exam: PRESENT: neck supple Respiratory exam: PRESENT: decreased breath sounds Cardiovascular exam: PRESENT: +S1, +S2 GI/Abdominal exam: PRESENT: normal bowel sounds Neurological exam: PRESENT: altered Results Laboratory Results: 12/20/17 06:29 12/20/17 06:29 12/19/17 12/20/17 12/20/17 10:09 06:29 06:29 WBC 9.9 RBC 2.79 L Hgb 8.6 L Hct 25.4 L MCV 91 MCH 30.7 MCHC 33.7 RDW 13.5 Plt Count 340 Seg Neutrophils % 81.3 H Lymphocytes % 12.7 L Monocytes % 5.3 Eosinophils % 0.5 Basophils % 0.2 Absolute Neutrophils 8.0 Absolute Lymphocytes 1.3 Absolute Monocytes 0.5 Absolute Eosinophils 0.1 Absolute Basophils 0.0 Sodium 140.2 Potassium 3.1 L Chloride 104 Carbon Dioxide 28 Anion Gap 8 BUN 5 L Creatinine 0.58 0.55 Est GFR ( Amer) > 60 > 60 Est GFR (Non-Af Amer) > 60 > 60 Glucose 83 Calcium 7.3 L Impressions: Chest X-Ray 12/11/17 10:51 IMPRESSION: NO ACUTE RADIOGRAPHIC FINDING IN THE CHEST. Facial Bones CT 12/12/17 00:00 IMPRESSION: Diffuse swelling of the left superficial and deep lobe of the parotid gland, enlargement of a preauricular lymph node, and diffuse soft tissue swelling of the left ear pinna and external auditory canal soft tissues. Findings likely represent parotiditis. Malignant external otitis is also possible. Dr. Collado notified Soft Tissue Neck CT 12/15/17 00:00 IMPRESSION: Diffuse enlargement inflammatory changes of the left parotid gland extending deep and superficial along the neck and along the para pharynx into the floor of the mouth and tongue as well as the submandibular space bilaterally. Large phlegmon. A discrete drainable abscess is not identified. Assessment & Plan - Diagnosis (1) Acute kidney injury Is this a current diagnosis for this admission?: Yes (2) Dementia Qualifiers: Dementia type: unspecified type Dementia behavioral disturbance: with behavioral disturbance Qualified Code(s): F03.91 - Unspecified dementia with behavioral disturbance Is this a current diagnosis for this admission?: Yes (3) MRSA (methicillin resistant Staphylococcus aureus) septicemia Is this a current diagnosis for this admission?: Yes (4) Malignant otitis externa of left ear Qualifiers: Chronicity: acute Qualified Code(s): H60.22 - Malignant otitis externa, left ear Is this a current diagnosis for this admission?: Yes (5) Sepsis Qualifiers: Sepsis type: sepsis due to unspecified organism Qualified Code(s): A41.9 - Sepsis, unspecified organism Is this a current diagnosis for this admission?: Yes (6) Dysphagia, oral phase Is this a current diagnosis for this admission?: Yes - Time Time Spent with patient: 15-24 minutes Medications reviewed and adjusted accordingly: Yes Anticipated discharge: Other Within: Other - Inpatient Certification Medical Necessity: Need Close Monitoring Due to Risk of Patient Decompensation Post Hospital Care: D/C [facility] Documentation - Plan Summary Plan Summary: As per patient's family patient is currently on comfort care
[2017-12-21] MEDS: LORAZEPAM INJ 2 MG/1 ML VIAL IV PRN ×5 (04:44→22:22)
[2017-12-21] MEDS: DEXTROSE 5%-WATER 1000 ML 1,000 ML IV PRN (06:00)
--- NOTE | 2017-12-21 20:57 | PDOC PROGRESS REPORT ---
Subjective Progress Note for:: 12/21/17 Subjective:: She was seen by the bedside, the care was changed to comfort care over the weekend. Reason For Visit: ENCEPHALOPATHY DEMENTIA SEPSIS FEVER Physical Exam Vital Signs: Temp Pulse Resp BP Pulse Ox 98.4 F 97 16 80/55 L 99 12/19/17 21:26 12/19/17 21:26 12/19/17 21:26 12/19/17 21:26 12/19/17 21:26 Intake & Output 12/20/17 12/21/17 12/22/17 06:59 06:59 06:59 Intake Total 2947 1842 1210 Output Total 1100 1800 1000 Balance 1847 42 210 Results Laboratory Results: 12/20/17 06:29 12/20/17 06:29 Impressions: Chest X-Ray 12/11/17 10:51 IMPRESSION: NO ACUTE RADIOGRAPHIC FINDING IN THE CHEST. Facial Bones CT 12/12/17 00:00 IMPRESSION: Diffuse swelling of the left superficial and deep lobe of the parotid gland, enlargement of a preauricular lymph node, and diffuse soft tissue swelling of the left ear pinna and external auditory canal soft tissues. Findings likely represent parotiditis. Malignant external otitis is also possible. Dr. Collado notified Soft Tissue Neck CT 12/15/17 00:00 IMPRESSION: Diffuse enlargement inflammatory changes of the left parotid gland extending deep and superficial along the neck and along the para pharynx into the floor of the mouth and tongue as well as the submandibular space bilaterally. Large phlegmon. A discrete drainable abscess is not identified. Assessment & Plan - Diagnosis (1) Sepsis Qualifiers: Sepsis type: sepsis due to unspecified organism Qualified Code(s): A41.9 - Sepsis, unspecified organism Is this a current diagnosis for this admission?: Yes (2) Dementia Qualifiers: Dementia type: Alzheimer's disease Is this a current diagnosis for this admission?: Yes (3) Malignant otitis externa of left ear Qualifiers: Chronicity: acute Qualified Code(s): H60.22 - Malignant otitis externa, left ear Is this a current diagnosis for this admission?: Yes (4) Acute kidney injury Is this a current diagnosis for this admission?: Yes (5) Hypernatremia Is this a current diagnosis for this admission?: Yes (6) MRSA (methicillin resistant Staphylococcus aureus) septicemia Is this a current diagnosis for this admission?: Yes
[2017-12-22] MEDS: LORAZEPAM INJ 2 MG/1 ML VIAL IV PRN ×6 (02:18→23:38)
[2017-12-22] MEDS: DEXTROSE 5%-WATER 1000 ML 1,000 ML IV PRN (05:41)
--- NOTE | 2017-12-22 20:25 | PDOC PROGRESS REPORT ---
Subjective Progress Note for:: 12/22/17 Subjective:: Patient was transition to comfort care by family over the weekend, she is maintaining normal blood pressure, there are no new "issue" to address Reason For Visit: ENCEPHALOPATHY DEMENTIA SEPSIS FEVER Physical Exam Vital Signs: Temp Pulse Resp BP Pulse Ox 98.3 F 68 16 131/35 H 86 L 12/22/17 08:00 12/22/17 08:00 12/22/17 08:00 12/22/17 08:00 12/22/17 08:00 Intake & Output 12/21/17 12/22/17 12/23/17 06:59 06:59 06:59 Intake Total 1842 1980 1560 Output Total 1800 1975 Balance 42 5 1560 Results Laboratory Results: 12/20/17 06:29 12/20/17 06:29 Impressions: Chest X-Ray 12/11/17 10:51 IMPRESSION: NO ACUTE RADIOGRAPHIC FINDING IN THE CHEST. Facial Bones CT 12/12/17 00:00 IMPRESSION: Diffuse swelling of the left superficial and deep lobe of the parotid gland, enlargement of a preauricular lymph node, and diffuse soft tissue swelling of the left ear pinna and external auditory canal soft tissues. Findings likely represent parotiditis. Malignant external otitis is also possible. Dr. Collado notified Soft Tissue Neck CT 12/15/17 00:00 IMPRESSION: Diffuse enlargement inflammatory changes of the left parotid gland extending deep and superficial along the neck and along the para pharynx into the floor of the mouth and tongue as well as the submandibular space bilaterally. Large phlegmon. A discrete drainable abscess is not identified. Assessment & Plan - Diagnosis (1) Sepsis Qualifiers: Sepsis type: sepsis due to unspecified organism Qualified Code(s): A41.9 - Sepsis, unspecified organism Is this a current diagnosis for this admission?: Yes (2) Dementia Qualifiers: Dementia type: Alzheimer's disease Is this a current diagnosis for this admission?: Yes (3) Malignant otitis externa of left ear Qualifiers: Chronicity: acute Qualified Code(s): H60.22 - Malignant otitis externa, left ear Is this a current diagnosis for this admission?: Yes (4) Acute kidney injury Is this a current diagnosis for this admission?: Yes (5) Hypernatremia Is this a current diagnosis for this admission?: Yes (6) MRSA (methicillin resistant Staphylococcus aureus) septicemia Is this a current diagnosis for this admission?: Yes
[2017-12-23] MEDS ORDERED: LORAZEPAM INJ 2 MG/1 ML VIAL IV ONE (01:45)
--- NOTE | 2017-12-23 15:12 | PDOC PROGRESS REPORT ---
Subjective Progress Note for:: 12/23/17 Subjective:: Patient on comfort care measures no new complaints Reason For Visit: ENCEPHALOPATHY DEMENTIA SEPSIS FEVER Physical Exam Vital Signs: Temp Pulse Resp BP Pulse Ox 97.7 F 67 24 H 122/48 L 91 L 12/22/17 19:36 12/22/17 19:36 12/22/17 19:36 12/22/17 19:36 12/22/17 19:36 Intake & Output 12/22/17 12/23/17 12/24/17 06:59 06:59 06:59 Intake Total 1979 1560 Output Total 1974 600 Balance 5 960 Results Laboratory Results: 12/20/17 06:29 12/20/17 06:29 Impressions: Chest X-Ray 12/11/17 10:51 IMPRESSION: NO ACUTE RADIOGRAPHIC FINDING IN THE CHEST. Facial Bones CT 12/12/17 00:00 IMPRESSION: Diffuse swelling of the left superficial and deep lobe of the parotid gland, enlargement of a preauricular lymph node, and diffuse soft tissue swelling of the left ear pinna and external auditory canal soft tissues. Findings likely represent parotiditis. Malignant external otitis is also possible. Dr. Collado notified Soft Tissue Neck CT 12/15/17 00:00 IMPRESSION: Diffuse enlargement inflammatory changes of the left parotid gland extending deep and superficial along the neck and along the para pharynx into the floor of the mouth and tongue as well as the submandibular space bilaterally. Large phlegmon. A discrete drainable abscess is not identified. Assessment & Plan - Diagnosis (1) Sepsis Qualifiers: Sepsis type: sepsis due to unspecified organism Qualified Code(s): A41.9 - Sepsis, unspecified organism Is this a current diagnosis for this admission?: Yes (2) Dementia Qualifiers: Dementia type: Alzheimer's disease Is this a current diagnosis for this admission?: Yes (3) Malignant otitis externa of left ear Qualifiers: Chronicity: acute Qualified Code(s): H60.22 - Malignant otitis externa, left ear Is this a current diagnosis for this admission?: Yes (4) Acute kidney injury Is this a current diagnosis for this admission?: Yes (5) Hypernatremia Is this a current diagnosis for this admission?: Yes (6) MRSA (methicillin resistant Staphylococcus aureus) septicemia Is this a current diagnosis for this admission?: Yes
[2017-12-23] MEDS: LORAZEPAM INJ 2 MG/1 ML VIAL IV PRN (17:30)
[2017-12-24] MEDS: LORAZEPAM INJ 2 MG/1 ML VIAL IV PRN ×2 (01:06→05:51)
[2017-12-24] MEDS: FENTANYL CITRATE INJ/PF 100 MCG/2 ML AMPUL IV PRN (19:51)
--- NOTE | 2017-12-24 20:54 | PDOC PROGRESS REPORT ---
Subjective Progress Note for:: 12/24/17 Subjective:: Patient remains in comfort care Reason For Visit: ENCEPHALOPATHY DEMENTIA SEPSIS FEVER Physical Exam Vital Signs: Temp Pulse Resp BP Pulse Ox 98.5 F 80 22 H 108/43 L 93 12/23/17 19:49 12/23/17 19:49 12/23/17 19:49 12/23/17 19:49 12/23/17 19:49 Intake & Output 12/23/17 12/24/17 12/25/17 06:59 06:59 06:59 Intake Total 1560 0 Output Total 600 425 Balance 960 -425 Results Laboratory Results: 12/20/17 06:29 12/20/17 06:29 Impressions: Chest X-Ray 12/11/17 10:51 IMPRESSION: NO ACUTE RADIOGRAPHIC FINDING IN THE CHEST. Facial Bones CT 12/12/17 00:00 IMPRESSION: Diffuse swelling of the left superficial and deep lobe of the parotid gland, enlargement of a preauricular lymph node, and diffuse soft tissue swelling of the left ear pinna and external auditory canal soft tissues. Findings likely represent parotiditis. Malignant external otitis is also possible. Dr. Collado notified Soft Tissue Neck CT 12/15/17 00:00 IMPRESSION: Diffuse enlargement inflammatory changes of the left parotid gland extending deep and superficial along the neck and along the para pharynx into the floor of the mouth and tongue as well as the submandibular space bilaterally. Large phlegmon. A discrete drainable abscess is not identified. Assessment & Plan - Diagnosis (1) Sepsis Qualifiers: Sepsis type: sepsis due to unspecified organism Qualified Code(s): A41.9 - Sepsis, unspecified organism Is this a current diagnosis for this admission?: Yes (2) Dementia Qualifiers: Dementia type: Alzheimer's disease Is this a current diagnosis for this admission?: Yes (3) Malignant otitis externa of left ear Qualifiers: Chronicity: acute Qualified Code(s): H60.22 - Malignant otitis externa, left ear Is this a current diagnosis for this admission?: Yes (4) Acute kidney injury Is this a current diagnosis for this admission?: Yes (5) Hypernatremia Is this a current diagnosis for this admission?: Yes (6) MRSA (methicillin resistant Staphylococcus aureus) septicemia Is this a current diagnosis for this admission?: Yes
[2017-12-24 21:12] VITALS: BP 107/41
[2017-12-25] MEDS: LORAZEPAM INJ 2 MG/1 ML VIAL IV PRN ×3 (00:39→18:22)
[2017-12-25] MEDS: FENTANYL CITRATE INJ/PF 100 MCG/2 ML AMPUL IV PRN ×2 (01:04→19:48)
--- NOTE | 2017-12-25 20:30 | PDOC PROGRESS REPORT ---
Subjective Progress Note for:: 12/25/17 Subjective:: Patient was admitted for the management of sepsis presently comfort care Reason For Visit: ENCEPHALOPATHY DEMENTIA SEPSIS FEVER Physical Exam Vital Signs: Temp Pulse Resp BP Pulse Ox 98.4 F 76 20 107/41 L 94 12/24/17 19:58 12/24/17 19:58 12/24/17 19:58 12/24/17 19:58 12/24/17 19:58 Intake & Output 12/24/17 12/25/17 12/26/17 06:59 06:59 06:59 Intake Total 0 0 Output Total 425 200 350 Balance -425 -200 -350 Results Laboratory Results: 12/20/17 06:29 12/20/17 06:29 Impressions: Chest X-Ray 12/11/17 10:51 IMPRESSION: NO ACUTE RADIOGRAPHIC FINDING IN THE CHEST. Facial Bones CT 12/12/17 00:00 IMPRESSION: Diffuse swelling of the left superficial and deep lobe of the parotid gland, enlargement of a preauricular lymph node, and diffuse soft tissue swelling of the left ear pinna and external auditory canal soft tissues. Findings likely represent parotiditis. Malignant external otitis is also possible. Dr. Collado notified Soft Tissue Neck CT 12/15/17 00:00 IMPRESSION: Diffuse enlargement inflammatory changes of the left parotid gland extending deep and superficial along the neck and along the para pharynx into the floor of the mouth and tongue as well as the submandibular space bilaterally. Large phlegmon. A discrete drainable abscess is not identified. Assessment & Plan - Diagnosis (1) Sepsis Qualifiers: Sepsis type: sepsis due to unspecified organism Qualified Code(s): A41.9 - Sepsis, unspecified organism Is this a current diagnosis for this admission?: Yes (2) Dementia Qualifiers: Dementia type: Alzheimer's disease Is this a current diagnosis for this admission?: Yes (3) Malignant otitis externa of left ear Qualifiers: Chronicity: acute Qualified Code(s): H60.22 - Malignant otitis externa, left ear Is this a current diagnosis for this admission?: Yes (4) Acute kidney injury Is this a current diagnosis for this admission?: Yes (5) Hypernatremia Is this a current diagnosis for this admission?: Yes (6) MRSA (methicillin resistant Staphylococcus aureus) septicemia Is this a current diagnosis for this admission?: Yes
[2017-12-26] MEDS: LORAZEPAM INJ 2 MG/1 ML VIAL IV PRN ×3 (00:07→11:55)
[2017-12-26] MEDS: FENTANYL CITRATE INJ/PF 100 MCG/2 ML AMPUL IV PRN ×2 (00:07→06:45)
[2017-12-26] MEDS ORDERED: LORAZEPAM 1 MG TABLET SL PRN (12:11)
--- NOTE | 2017-12-26 12:32 | PDOC TRANSFER SUMMARY ---
General - Admit/Disc Date/PCP Admission Date/Primary Care Provider: 12/11/17 13:38 ROGER CASH MD Discharge Date: 12/26/17 - Discharge Diagnosis (1) MRSA (methicillin resistant Staphylococcus aureus) septicemia Is this a current diagnosis for this admission?: Yes (2) Sepsis Is this a current diagnosis for this admission?: Yes (3) Dementia Is this a current diagnosis for this admission?: Yes (4) Malignant otitis externa of left ear Is this a current diagnosis for this admission?: Yes (5) Acute kidney injury Is this a current diagnosis for this admission?: Yes (6) Hypernatremia Is this a current diagnosis for this admission?: Yes - Additional Information Prescriptions: Morphine Sulfate [Morphine Oral Soln 10 Mg/5 Ml Udcup] 10 mg PO Q3 PRN #100 udc PRN Reason: Home Medications: Morphine Sulfate [Morphine Oral Soln 10 Mg/5 Ml Udcup] 10 mg PO Q3 PRN #100 udc 12/26/17 History of Present Illness Admission Date/PCP: 12/11/17 13:38 ROGER CASH MD History of Present Illness: She has advanced dementia, she was admitted for evaluation and management of sepsis. Hospital Course Hospital Course: She was admitted when she presented with severe sepsis secondary to malignant otitis externa, MRSA septicemia. She has advanced dementia with poor function and quality of life, resident of the detention with severe debilitation. She was treated with IV antibiotic, patient condition remains poor throughout hospital stay care was transitioned to comfort care in the last few days, plan is to transfer to detention for comfort care measures Physical Exam Vital Signs: Temp Pulse Resp BP Pulse Ox 98.4 F 76 20 107/41 L 94 12/24/17 19:58 12/24/17 19:58 12/24/17 19:58 12/24/17 19:58 12/24/17 19:58 Intake & Output 12/25/17 12/26/17 12/27/17 06:59 06:59 07:59 Intake Total 0 0 Output Total 200 725 Balance -200 -725 General appearance: PRESENT: no acute distress Respiratory exam: PRESENT: clear to auscultation sharron Cardiovascular exam: PRESENT: +S1, +S2 Neurological exam: PRESENT: altered Results Laboratory Results: 12/20/17 06:29 12/20/17 06:29 Impressions: Chest X-Ray 12/11/17 10:51 IMPRESSION: NO ACUTE RADIOGRAPHIC FINDING IN THE CHEST. Facial Bones CT 12/12/17 00:00 IMPRESSION: Diffuse swelling of the left superficial and deep lobe of the parotid gland, enlargement of a preauricular lymph node, and diffuse soft tissue swelling of the left ear pinna and external auditory canal soft tissues. Findings likely represent parotiditis. Malignant external otitis is also possible. Dr. Cash notified Soft Tissue Neck CT 12/15/17 00:00 IMPRESSION: Diffuse enlargement inflammatory changes of the left parotid gland extending deep and superficial along the neck and along the para pharynx into the floor of the mouth and tongue as well as the submandibular space bilaterally. Large phlegmon. A discrete drainable abscess is not identified. Qualifiers - * PATEINT BEING DISCHARGED WITH ANY OF THE FOLLOWING DIAGNOSIS?: No
== END 2017-12-26 15:50 | DRG 872 ==
LOC: ER 10:19 → EH 13:38 → 4N 15:53
PROVIDERS: ADMIT Internal Medicine; ATTEND Internal Medicine
DX: A41.02 Sepsis due to Methicillin resistant Staphylococcus aureus (principal); H60.22 Malignant otitis externa, left ear; N17.9 Acute kidney failure, unspecified; E87.0 Hyperosmolality and hypernatremia; G30.9 Alzheimer's disease, unspecified; F02.81 Dementia in other diseases classified elsewhere, unspecified severity, with behavioral disturbance; Z66 Do not resuscitate; M19.90 Unspecified osteoarthritis, unspecified site; K11.20 Sialoadenitis, unspecified; R65.20 Severe sepsis without septic shock; Z78.1 Physical restraint status; Z79.899 Other long term (current) drug therapy; Z79.82 Long term (current) use of aspirin
CPT/HCPCS: 36415; 70486; 70491; 71045; 80048; 80053; 80202; 81001; 82565; 82803; 83605; 85025; 85610; 87040; 87077; 87086; 87186; 93005; 93010; 96365; 96375; 99291; J0295; J0696; J1170; J1200; J1885; J2060; J3010; J3370; J3480; J7030; J7060